=== PATIENT | female | born 1970 | race Caucasian/White ===

== ENCOUNTER 2017-03-22 14:53 | Emergency (ER) | payer MEDICAID ==
[2017-03-22 15:33] VITALS: RESP 18
[2017-03-22 15:47] VITALS: BMI 29.8
[2017-03-22 15:48] VITALS: BP 103/69; PULSE 63; TEMP 98.2; O2SAT 100
--- NOTE | 2017-03-22 15:57 | ED PDOC ---
Arrival/HPI - General Chief Complaint: Abdominal Pain Time Seen by Provider: 03/22/17 15:56 Historian: Patient - History of Present Illness Narrative History of Present Illness (Text): 03/22/17 15:56 46 y/o female, no significant pmh, nkda, c/o rt. knee pain and swelling x 2 days with no fall or trauma. Aching pain, associated with swelling, admits walking and standing alot for the past few days, pain traveling to the rt. lower calf region, no numbness or tingling, no chest pain or shortness of breath , no night sweat, no other medical or psychological complaints. Past Medical History - Provider Review Nursing Documentation Reviewed: Yes - Infectious Disease Hx of Infectious Diseases: None - Tetanus Immunization Tetanus Immunization: Unknown - Past Medical History Past Medical History: No Previous - Cardiac Hx Hyperlipemia: Yes - Neurological Hx Headaches: Yes Hx Migraine: Yes - Musculoskeletal/Rheumatological Hx Falls: No Other/Comment: anemia - Genitourinary/Gynecological Hx Genitourinary Disorders: No - Psychiatric Hx Psychophysiologic Disorder: No Hx Anxiety: No Hx Depression: No Hx Emotional Abuse: No Hx Physical Abuse: No Hx Substance Use: No - Past Surgical History Past Surgical History: No Previous - Anesthesia Hx Anesthesia: No Hx Anesthesia Reactions: No Hx Malignant Hyperthermia: No - Suicidal Assessment Feels Threatened In Home Enviroment: No Family/Social History - Physician Review Nursing Documentation Reviewed: Yes Family/Social History: Unknown Family HX Smoking Status: Never Smoked Hx Alcohol Use: No Hx Substance Use: No Hx Substance Use Treatment: No Allergies/Home Meds Allergies/Adverse Reactions: Allergies No Known Allergies Allergy (Verified 03/22/17 15:30) Review of Systems - Review of Systems Constitutional: absent: Fatigue, Fevers Eyes: absent: Vision Changes ENT: absent: Hearing Changes Respiratory: absent: SOB, Cough Cardiovascular: absent: Chest Pain Gastrointestinal: absent: Abdominal Pain, Stool Changes, Vomiting Musculoskeletal: Arthralgias. absent: Back Pain, Neck Pain, Joint Swelling, Myalgias Skin: absent: Rash, Pruritis Physical Exam Vital Signs Reviewed: Yes Vital Signs Temp Pulse Resp BP Pulse Ox 03/22/17 15:32 98.2 F 63 18 103/69 100 Temperature: Afebrile Blood Pressure: Normal Pulse: Regular Respiratory Rate: Normal Appearance: Positive for: Well-Appearing, Non-Toxic, Comfortable Pain Distress: Moderate Mental Status: Positive for: Alert and Oriented X 3 - Systems Exam Head: Present: Atraumatic, Normocephalic Pupils: Present: PERRL Extroacular Muscles: Present: EOMI Conjunctiva: Present: Normal Mouth: Present: Moist Mucous Membranes Neck: Present: Normal Range of Motion Respiratory/Chest: Present: Clear to Auscultation, Good Air Exchange. No: Respiratory Distress, Accessory Muscle Use Cardiovascular: Present: Regular Rate and Rhythm, Normal S1, S2, Other (no pedal edema). No: Murmurs Abdomen: Present: Normal Bowel Sounds. No: Tenderness, Distention, Peritoneal Signs Upper Extremity: Present: Normal Inspection. No: Cyanosis, Edema Lower Extremity: Present: Normal Inspection, Other (RLE: +ttp and mild swelling to the rt. knee, negative newton and wallace signs, skin intact, no erythematous , FROM without limitation, sensation intact, motor 5/5. ). No: Edema Neurological: Present: GCS=15, Speech Normal, Motor Func Grossly Intact, Gait Normal, Memory Normal Skin: Present: Warm, Dry, Normal Color. No: Rashes Psychiatric: Present: Alert, Oriented x 3, Normal Insight, Normal Concentration Medical Decision Making ED Course and Treatment: 03/22/17 16:02 -RLE venuous doppler -indomethacin, kevin wrap, crutches, ice pack 03/22/17 16:54 -urine hcg negative -Kevin wrap applied to the rt. knee, pain decreased, cane ordered since the patient refused crutches. -Discharge home with indomethacin, kevin wrap, cane, ice compression, follow up with your own pmd and orthopedic within 2 days, return to the ER for any new or worsening signs or symptoms. - RAD Interpretation Radiology Orders: 03/22/17 15:59 DUPLEX LOWER EXTRM VEIN RIGHT [US] Stat RLE venuous doppler: as per preliminary, no acute DVT Property Field Adjuster: Radiologist - Medication Orders Current Medication Orders: Discontinued Medications Indomethacin (Indocin) 50 mg PO STAT STA Stop: 03/22/17 16:00 - PA / ASSISTANT PASSENGER LOCOMOTIVE ENGINEER / Resident Statement MD/DO has reviewed & agrees with the documentation as recorded. Disposition/Present on Arrival - Present on Arrival Any Indicators Present on Arrival: No History of DVT/PE: No History of Uncontrolled Diabetes: No Urinary Catheter: No History of Decub. Ulcer: No History Surgical Site Infection Following: None - Disposition Have Diagnosis and Disposition been Completed?: Yes Diagnosis: Bursitis, Tendinitis Disposition: HOME/ ROUTINE Disposition Time: 16:03 Patient Plan: Discharge Patient Problems: Current Active Problems Problem Status Onset Bursitis Acute Tendinitis Acute Condition: IMPROVED Additional Instructions: -Discharge home with indomethacin, kevin wrap, cane, ice compression, follow up with your own pmd and orthopedic within 2 days, return to the ER for any new or worsening signs or symptoms. Prescriptions: Indomethacin [Indocin] 50 mg PO TID PRN #30 cap PRN Reason: Other Referrals: Pavan Mensah MD [Primary Care Provider] - Follow up with primary Floyd Ayala MD [Staff Provider] - Follow up with primary Forms: [facility] (Somali), WORK NOTE
--- NOTE | 2017-03-23 10:12 | US ---
PROCEDURE: Right lower extremity venous US HISTORY: Leg pain and swelling. Evaluate for DVT. PHYSICIAN(S): Diego Donis M.D. TECHNIQUE: Duplex sonography and color-flow Doppler with graded compression were used to evaluate the deep venous system of the right lower extremity. FINDINGS: The visualized deep venous system of the right lower extremity is sonographically normal and compressible. Normal waveforms and augmentation are seen. There is no sonographic evidence for deep venous thrombosis in the visualized segments of the right lower extremity. IMPRESSION: 1. No sonographic evidence for deep venous thrombosis in the visualized segments of the right lower extremity.
== END 2017-03-22 17:46 | disposition home or self-care (01) ==
LOC: ED 14:53
DX: M70.51 Other bursitis of knee, right knee (principal); M76.891 Other specified enthesopathies of right lower limb, excluding foot